=== PATIENT | female | born 1945 | race Asian ===

== ENCOUNTER → 2017-11-07 | Outpatient (CLI) | payer OTHER ==
[~2017-11-07] MED LIST: ADULT LOW DOSE81 MG PO; CIPROFLOXACIN500 M1 PO; CYMBALTA30 MG PO; FISH OIL 1,0001 EAC5 PO; FLAGYL500 MG PO; IBUPROFEN 800800 M1 PO; KLOR-CON 1010 MEQ PO; LIPITOR 10 MG10 M1 PO; LISINOPRIL-HCT1 EAC1 PO; MULTIVITAMINS1 EAC7 PO; NORCO 5-325 TA1 EACH PO; NORVASC5 MG PO; OMEGA-31000 M1 PO; SELENIMIN50 MCG PO; VITAMIN B-12500 MCG PO; VITAMIN D3400 UNIT PO; VITAMIN E400 UNI2 PO; VITAMINC500 PO; ZESTRIL2.5 MG; ZOFRAN ODT4 MG PO
== END ==
LOC: CAT 15:35
DX: I10 Essential (primary) hypertension (principal); I67.82 Cerebral ischemia; E78.00 Pure hypercholesterolemia, unspecified

== ENCOUNTER → 2017-11-19 | Outpatient (CLI) | payer OTHER | LOC: MRI 14:41 | DX: M47.22 Other spondylosis with radiculopathy, cervical region (principal); M25.511 Pain in right shoulder ==

== ENCOUNTER → 2017-11-21 | Outpatient (CLI) | payer OTHER ==
[~2017-11-21] VITALS: Ht 170.2 cm; Wt 79.4 kg
--- NOTE | ~2017-11-21 | P ---
[facility] [place] [address] PROCEDURE REPORT Name: DAVID FAIR Room #: REG Nelson WatkinsChristianCharlotteChristian#: [id number] Admission: 11/21/17 Attend Phys: Carmenza Rollins DO Discharge: Date of : 45 Report #: [id number] THIS REPORT FOR: //name// CC: Carmenza Nguyen MD DATE OF SERVICE: 11/21/2017 She is a patient of Dr. Roney Nguyen. PROCEDURE: Esophagogastroduodenoscopy with biopsy. INDICATION FOR PROCEDURE: Evaluate iron deficiency anemia. The patient does not eat red meat. DESCRIPTION OF PROCEDURE: Informed consent for this procedure was obtained prior to the administration of any medication. The risks of the procedure, which include bleeding, perforation, infection, complications of sedation and the possibility I could miss something have been explained to the patient, and she has indicated her consent by signing. Propofol was slowly titrated before and during this procedure for patient comfort by the anesthesia service. The [employer] upper videoscope was introduced through the upper esophageal sphincter and advanced under direct visualization to the descending duodenum. Findings are noted on withdrawal of the scope. The duodenal mucosa appeared normal throughout its entirety. Biopsies were obtained x 2 for histopathology to evaluate for possible celiac sprue as an etiology of iron deficiency anemia. Pylorus, normal mucosa. Antrum, in the antrum, there is an erosive gastritis. It is mild to moderate. Biopsies were obtained x 2 for histopathology to evaluate this further and to evaluate for possible H. pylori infection. In the body of the stomach, there were a few more erosions and erythema as well. Cardia and fundus, hiatal hernia was noted. There was an erosive gastritis in the cardia of the stomach as well. Biopsies were obtained from the proximal stomach x 2 for histopathology as well. The scope was withdrawn to the esophagus. The Z-line was appropriately located at the top of the gastric folds and appeared normal. The esophageal mucosa appeared normal throughout its entirety. I saw no evidence of any esophageal webs on withdrawal of the scope. The scope was withdrawn. The patient was turned for colonoscopy. IMPRESSION: Patchy proximal and distal erosive gastritis. Other than that, normal esophagogastroduodenoscopy to descending duodenum. RECOMMENDATIONS: To await the biopsy results and we will proceed with colonoscopy at this time. [address] [address] PROCEDURE REPORT Name: DAVID FAIR Room #: REG ARY Way#: [id number] Admission: 11/21/17 Attend Phys: Carmenza Rollins DO Discharge: Date of : 45 Report #: [id number] PROCEDURE: Colonoscopy with biopsy. INDICATION FOR PROCEDURE: Evaluate sources of iron deficiency anemia. The patient does not eat red meat. DESCRIPTION OF PROCEDURE: Informed consent for this procedure was obtained prior to the administration of any medication. The risks of the procedure, which include bleeding, perforation, infection, complications of sedation and the possibility I could miss something have been explained to the patient and she has indicated her consent by signing. Propofol was slowly titrated before and during this procedure for patient comfort by the anesthesia service. Digital rectal exam does not reveal any palpable abnormalities. Then, the Olympus colonoscope was introduced through the anal sphincter and advanced under direct visualization to the terminal ileum. Findings were noted on withdrawal of the scope. The terminal ileal mucosa appeared normal. In the cecum and the appendiceal orifice, there was a 3 mm sessile polyp removed in toto with a regular biopsy forceps and sent to pathology lab. Good hemostasis was noted after that polypectomy. The remaining cecal mucosa appeared normal. Ascending colon, normal mucosa. There was a single uncomplicated diverticulum in the distal ascending colon. Hepatic flexure, normal mucosa. Transverse colon, normal mucosa. Splenic flexure, normal mucosa. Descending colon, normal mucosa. Sigmoid colon, normal mucosa. Rectum, normal mucosa. Retroflex view does reveal some external hemorrhoids that are nonbleeding. The scope was withdrawn. The patient went to the recovery area in stable condition. She tolerated the procedure well. IMPRESSION: 1. Polyp and appendiceal orifice, removed completely as above. 2. Uncomplicated ascending diverticulum. 3. External hemorrhoids. RECOMMENDATIONS: Are for her to await the biopsy results. We did obtain a stool for occult blood. If her occult blood is positive, I would recommend she proceed to an M2 capsule study. If her iron levels are low, I would recommend reloading her with iron sucrose IV. Thank you very much once again for allowing me to participate in her care. <ELECTRONICALLY SIGNED> By: Carmenza Rollins DO 11/23/17 0024 [id number] [id number] Carmenza Rollins DO /nt
--- NOTE | ~2017-11-21 | PATH ---
[facility] [address] [place] [address] PATHOLOGY RPT PROCEDURE Name: DAVID RODRIGUEZ Room #: REG ARY Barrett.#: [id number] Admission: 11/21/17 Date of : 45 Discharge: Report #: [id number] Path Case #: [id number] [facility] Accession Number: [id number] . 01 Material submitted: . PART A: BX OF DUODENUM R/O CELIAC SPRUE PART B: BX OF DISTAL STOMACH R/O H. PYLORI, AUTOIMMUNE GASTRITIS PART C: BX OF PROXIMAL GASTRITIS R/O H. PYLORI,AUTOIMMUNE GASTRITIS PART D: POLYP AT APPENDICEAL ORIFICE . 01 Clinician provided ICD-10: D64.9 . 01 Clinical history: . Pre-OP DX: Anemia Post-OP DX: Hiatal hernia, erosive gastritis, colon polyp . 02 Diagnosis: A. Small bowel mucosa, duodenum rule out celiac sprue, endoscopic biopsy: - No diagnostic abnormalities present. - Negative for villous blunting or increase in intraepithelial lymphocytes. . B. Gastric mucosa, distal stomach rule out H. pylori, autoimmune gastritis, endoscopic biopsy: - Features of moderate reactive gastropathy. - Negative for intestinal metaplasia or atrophy. - Negative for Helicobacter pylori (properly controlled immunohistochemical stain performed) . C. Gastric mucosa (proximal gastritis rule out H. pylori and autoimmune gastritis: - Mild focal chronic inflammation. - Negative for intestinal metaplasia or atrophy. - Negative for Helicobacter pylori (properly controlled immunohistochemical stain performed). . D. Polyp, at appendiceal orifice, endoscopic biopsy: - Tubular adenoma. - Negative for high grade dysplasia. (IUV/db; 11/22/17) LBQ/11/22/2017 . 02 Electronically signed: . Ciarra Tristan MD, Pathologist NPI- [id number] . [address] [place] [address] PATHOLOGY RPT PROCEDURE Name: DAVID RODRIGUEZ [facility] #: REG [facility] [id number] Admission: 11/21/17 Date of : 45 Discharge: Report #: [id number] Path Case #: [id number] Gross description: . A. Received in formalin labeled "David Rodriguez, GILBERT duodenum, rule out celiac," is a single segment of [place] soft tissue measuring 0.4 cm in maximum dimension. The specimen is entirely submitted in cassette A1. . B. Received in formalin labeled "David Rodriguez, BX distal stomach," is a single segment of [place] soft tissue measuring 0.4 cm in maximum dimension. The specimen is entirely submitted in cassette B1. . C. Received in formalin labeled "David Rodriguez, BX proximal gastritis," are 2 segments of [place] soft tissue measuring 0.7 x 0.2 x 0.2 cm in aggregate dimensions and ranging from 0.3 to 0.4 cm in maximum dimension. The specimen is submitted entirely in cassette C1. . D. Received in formalin labeled "David Rodriguez, polyp at appendiceal orifice," are 3 segments of [place] soft tissue measuring 0.7 x 0.6 x 0.2 cm in aggregate dimensions and ranging from 0.3 to 0.4 cm in maximum dimension. The specimen is submitted entirely in cassette D1. (TSD; 11/21/2017) TOB/TOB . 02 Pathologist provided ICD-10: K31.9, K29.50, D12.0 . 02 CPT . 515646, 226730, 214536, 738951, [id number] Specimen Comment: A courtesy copy of this report has been sent to Specimen Comment: [phone], . Specimen Comment: Report sent to / DR NEGRON Performed at: [address], [place], [place] [id number] MD Brad Crystal MD Phone: [phone] Performed at: [address] [id number] MD Ciarra Tristan MD Phone: [phone]
== END | disposition home or self-care (01) ==
LOC: GI
DX: D12.1 Benign neoplasm of appendix (principal); K31.9 Disease of stomach and duodenum, unspecified; K29.50 Unspecified chronic gastritis without bleeding; K57.30 Diverticulosis of large intestine without perforation or abscess without bleeding; K64.4 Residual hemorrhoidal skin tags; K25.9 Gastric ulcer, unspecified as acute or chronic, without hemorrhage or perforation; I10 Essential (primary) hypertension; E78.00 Pure hypercholesterolemia, unspecified; D64.9 Anemia, unspecified; Z79.82 Long term (current) use of aspirin; Z98.890 Other specified postprocedural states; Z79.899 Other long term (current) drug therapy
CPT/HCPCS: 62110; 62900

== ENCOUNTER → 2017-12-26 | Outpatient (CLI) | payer OTHER ==
[2017-12-26 13:35] LABS: HEMATOCRIT 38.4 % (37.0-47.0); HEMOGLOBIN 12.5 gm/dL (12.0-15.0); MCH 27.8 pg (26.0-34.0); MCHC 32.4 g/dL (28.0-37.0); MCV 85.7 fL (80.0-100.0); PLATELET COUNT 245 thou/uL (150-400); RBC 4.48 mil/uL (4.20-5.00); RDW 28.2 % (10.5-14.5); WBC 5.5 thou/uL (4.0-11.0)
[2017-12-26 13:45] LABS: CREATININE 0.8 mg/dL (0.6-1.0); POTASSIUM 3.8 mmol/L (3.5-5.1)
[2017-12-26 14:24] LABS: ABSOLUTE NEUTROPHILS 3.6 thou/uL (1.4-8.2)
[2017-12-26 14:25] LABS: ANISOCYTOSIS 2+; PLATELET ESTIMATE R; TARGET CELLS OCCASIONAL
== END ==
LOC: LABMALL 12:09 → ULTRA 12:09
PROVIDERS: Internal Medicine
DX: M17.12 Unilateral primary osteoarthritis, left knee (principal); M25.462 Effusion, left knee; M25.762 Osteophyte, left knee; M11.262 Other chondrocalcinosis, left knee; M79.89 Other specified soft tissue disorders